=== PATIENT | male | born 1990 | race Caucasian/White ===

== ENCOUNTER 2023-06-20 23:26 | Emergency (ER) | payer OTHER, SELFPAY ==
[2023-06-20 23:35] VITALS: BP 160/110; PULSE 96; RESP 18; TEMP 37.2; O2SAT 99
--- NOTE | 2023-06-20 23:37 | ED_ITS ---
HPI - General Adult General Chief complaint: Psychiatric Symptoms Stated complaint: Substance abuse Time Seen by Provider: 06/20/23 23:37 Source: patient, EMS, old records reviewed (from [facility]) and police Mode of arrival: EMS Limitations: other (patient is intoxicated) History of Present Illness HPI narrative: Patient is a 33 year old assigned male at with a history of alcohol abuse presenting to the emergency department today with aggression. EMS and PD state that the patient was found wandering in the street attempting to open car doors. They state that initially when the patient was approached, he was cooperative but then he became combative and would not answer any of their questions. EMS and PD placed the patient in hard restraints. Related Data Allergies Allergy/AdvReac Type Severity Reaction Status Date / Time No Known Allergies Allergy Unverified 07/25/20 16:07 Review of Systems Constitutional: Constitutional: Reports no additional constitutional complaints, Denies chills, Denies fever(s) and Denies night sweats Eyes: Eyes: Reports no additional eye complaints, Denies blurry vision, Denies change in vision, Denies diplopia, Denies eye discharge, Denies loss of vision and Denies eye pain ENT: Denies dizziness Cardiovascular: Cardiovascular: Reports no additional cardiovascular c omplaints, Denies chest pain, Denies lightheadedness, Denies Loss of Consciousness and Denies dyspnea Respiratory: Respiratory: Reports no additional respiratory complaints and Denies dyspnea Gastrointestinal: Gastrointestinal: Reports no additional gastrointestinal complaints, Denies abdominal pain, Denies melena, Denies hematochezia, Denies change in bowel habits and Denies change in stool character Genitourinary: Genitourinary: Reports no additional male genitourinary complaints, Denies hematuria, Denies oliguria, Denies difficulty urinating, Denies dysuria, Denies urinary frequency, Denies urinary hesitancy, Denies urinary incontinence and Denies urinary urgency Musculoskeletal: Musculoskeletal: Reports no additional musculoskeletal complaints, Denies numbness and Denies tingling Neurologic: Denies dizziness, Denies loss of vision, Denies numbness and Denies tingling Psychiatric: Psychiatric: Reports no additional psychiatric complaints Endocrine: Endocrine: Reports no additional endocrine complaints Hematologic/Lymphatic: Hematologic/Lymphatic: Reports no additional hematologic/lymphatic complaints Allergic/Immunologic: Allergic/Immunologic: Reports no additional allergic/immunologic complaints PMFSH Past Medical History Attestation statement: The following information was validated with the patient. Source: old records reviewed and nursing notes reviewed Social History Social History Advance Directives: No Advance Directives Information Provided: No Physical Exam ED Vital Signs: Vital Signs - 24 hr 06/20/23 23:35 06/20/23 23:43 06/20/23 23:58 Temperature 99.0 F Pulse Rate 96 90 92 Respiratory Rate 18 18 18 Blood Pressure 160/110 H 153/107 H 160/110 H Pulse Oximetry 99 99 98 Oxygen Delivery Method Room Air Room Air Room Air 06/21/23 00:14 06/21/23 00:29 06/21/23 00:44 Temperature Pulse Rate 91 85 92 Respiratory Rate 18 18 18 Blood Pressure 159/106 H 141/93 H 146/100 H Pulse Oximetry 98 98 98 Oxygen Delivery Method Room Air Room Air Room Air 06/21/23 02:00 Temperature Pulse Rate 84 Respiratory Rate 16 Blood Pressure 140/95 H Pulse Oximetry 95 Oxygen Delivery Method Room Air BMI result Body Mass Index 26.6 Const General: cooperative, no acute distress, alert and awake Nutritional Appearance: well nourished Orientation/consciousness: patient oriented x3 Limitations: no limitations HENMT Head: Yes normal to inspection and Yes atraumatic Ears: hearing grossly normal bilaterally and external ears normal General nose exam: Normal external nose present, no nasal discharge noted and no epistaxis Face and sinus: Yes normal facial exam, No abrasion and No laceration Mouth: Normal oral and palatal mucosa present, no drooling and no muffled voice Eyes General: appearance normal, both eyes and all related structures Periorbital: periorbital findings normal Eyelids: Yes eyelids normal Conjunctivae: conjunctivae normal Pupils: Equal, round and reactive pupils present EOM: EOMs intact bilaterally Neck Neck: Yes normal visual inspection, Yes full ROM and Yes no lymphadenopathy Chest Chest palpation & inspection: normal inspection of the chest Resp Effort & Inspection: normal respiratory effort and able to speak in complete sentences Auscultation: clear to auscultation bilaterally Cardio Rate: regular rate Rhythm: regular rhythm GI Inspection: Yes normal to inspection Palpation (GI): Soft to palpation, not firm, nontender and no guarding Neuro General: patient oriented x3 and moves all extremities Cranial nerves: Yes Equal, round and reactive pupils present Cognition (Neuro): normal cognition Motor exam (neuro): 5/5 motor strength present throughout Sensory Exam: Normal double simultaneous stimulation for sensation Coordination: [id number] test normal Extrem General: Yes normal to inspection, Yes full ROM and Yes capillary refill normal Psych Appearance: grossly normal Mental Status: mental status grossly normal Affect: normal affect Attitude: cooperative Thought process: Normal thought process present Thought content: Normal thought content present Insight: Good insight present (Psych) Medical Decision Making Medical Decision Making MDM Narrative: Patient is a 33 year old assigned male at with a history of alcohol abuse presenting to the emergency department today with aggression. Patient would not initially answer my questions and remained in hard restraints from EMS. However, when EMS and PD left the patient's room, he became much more cooperative. Patient's restraints were removed 1 at a time and were eventually all removed. Patient was seen at [facility] on 06/19/2023 requesting alcohol detox. Patient is currently resting and will remain in the department until he is safe to [facility]. Patient will be placed in physician observation. -Patient is awake, alert and oriented times 3. Ambulatory with steady gait. Patient refuses labs, refused SUDE eval -patient before discharge -patient given home Narcan Differential Diagnosis Differential Diagnoses: The differential diagnosis associated with the presentation includes Substance use Agitation Independent Historian Clinical information obtained from an independent historian. History obtained from or confirmed by: EMS (EMS provided additional history and confirmed the history provided by the patient.) External Record Review External record reviewed: Outside ED record ([facility] record from 06/19/2023) Critical Care Time Critical Care Time Critical Care Time: Yes Total Critical Care Time: 45 Attestation: I spent 45 minutes of Critical Care Time with this patient. This does not include time spent on separately reported billable procedures. Discharge Plan Discharge Clinical Impression: Aggression, Polysubstance abuse Patient Disposition: Home, Self-Care Instructions: Polysubstance Abuse (ED) Additional Instructions: Please follow-up with your primary care physician tomorrow. If you have any worsening or new symptoms, please return to the emergency room or call 911 Interventions: [place]-Suicide Risk Severity Scale Last Done: 06/20/23 23:46
[2023-06-20 23:43] VITALS: BP 153/107; PULSE 90; RESP 18; O2SAT 99; BMI 26.6
[2023-06-20 23:58] VITALS: BP 160/110; PULSE 92; RESP 18; O2SAT 98
[2023-06-21 00:14] VITALS: BP 159/106; PULSE 91; RESP 18; O2SAT 98
--- NOTE | 2023-06-21 00:20 | MHC.EDTECH ---
Call out to [facility] Med Rec. at [phone] per PA Saida, left message
--- NOTE | 2023-06-21 00:23 | MHC.EDTECH ---
[facility] Med. Rec called back at [phone] rec. for pt and faxed was over
[2023-06-21 00:29] VITALS: BP 141/93; PULSE 85; RESP 18; O2SAT 98
[2023-06-21 00:44] VITALS: BP 146/100; PULSE 92; RESP 18; O2SAT 98
--- OUTSIDE RECORDS SUMMARY | 2023-06-21 01:41 | XMS_ITS | Continuity of Care Document ---
Author Name Unknown Organization [facility] ter Address [address] [place] [id number]- Care Team Providers Care Welder [employer] Name Role Phone Zhao SARMIENTO, Matt Fairchild Primary Care Physician Encounter [facility] Date(s): 06/19/23 - 06/19/[address] [id number]- Discharge Disposition: A-D/C Home Attending Physician: Alfred Rosas MD Admitting Physician: Alfred Rosas MD Referring Physician: Not on Staff, Referring MD Allergies, Adverse Reactions, Alerts Substance Reaction Severity Status Red Dye Active Medications albuterol 0.083% inhalation solution See Instructions, 0, 0, 09/08/06 16:21:52, Print VIANEY Number, Constant Indicator Start Date: 09/08/06 Status: Ordered Keflex monohydrate 500 mg oral capsule 500, mg, 1, capsule, By Mouth, 4 times a day, 0, 0, 09/08/06 16:22:20, Print VIANEY Number, 65, Constant Indicator Start Date: 09/08/06 Status: Ordered Vicodin 500 mg-5 mg oral tablet See Instructions, 0, 0, 09/08/06 16:22:38, 1 tablet By Mouth, Print VIANEY Number, Constant Indicator Start Date: 09/08/06 Status: Ordered Results Radiology Reports * Exam Date Time Procedure Performing Provider Status 06/19/23 2:51 AM Chest 2 Views Frontal and Lat Beverley Garcia; Rj (Verified) Notes: (Chest 2 Views Frontal and Lat) Reason For Exam: Chest Pain;Other: RESULT: Chest 2 Views Frontal and Lat Chest 2 Views Frontal and Lat Hx of Present Illness: patient endorses drinking 9 tall beers throughout the course of the day the last drink 4 hours ago. One hour ago he developed midsternal chest tightness nonradiating, nonreproduceable. 5 10; Reason: Other:; Chest Pain; Clinical Question(s): CHF COMPARISON: None. FINDINGS: LINES AND TUBES: None. LUNGS AND PLEURA: Clear lungs. Normal pulmonary vascularity. No pleural effusion. No pneumothorax. HEART, MEDIASTINUM AND MINNIE: Heart is normal in size. Normal mediastinal and hilar contour. BONES AND SOFT TISSUES: No acute abnormality. IMPRESSION: No acute abnormality. WSN: [id number] Ordering Physician: Kalina Crenshaw Dictated By: Servando Kearns MD Dictated Date/Time: 06/19/23 6:49 am Reviewed By: Servando Kearns MD Signed By: Servando Kearns MD Signed Date/Time: 06/19/23 6:49 am Transcribed By: EZRA Transcribed Date/Time: 06/19/23 6:49 am Vital Signs Most recent to oldest [Reference Range]: 1 2 3 Height 190 cm (06/19/23 6:35 AM) 190 cm (06/19/23 5:58 AM) 190 cm (06/19/23 1:27 AM) Weight 100 kg (06/19/23 6:35 AM) 100 kg (06/19/23 5:58 AM) 100 kg (06/19/23 1:27 AM) Oxygen Saturation [94-100 %] 98 % (06/19/23 6:35 AM) 98 % (06/19/23 5:58 AM) 96 % (06/19/23 4:14 AM) Pulse Rate [55-90 bpm] 87 bpm (06/19/23 6:56 AM) 75 bpm (06/19/23 6:35 AM) 94 bpm *H* (06/19/23 5:59 AM) Body Mass Index [18.5-24.99 kg/m2] 27.7 kg/m2 *H* (06/19/23 6:35 AM) 27.7 kg/m2 *H* (06/19/23 5:58 AM) Blood Pressure [90-138/55-84 mm Hg] 152/94mm Hg *H* (06/19/23 6:56 AM) 156/98mm Hg *H* (06/19/23 6:35 AM) 197/126mm Hg *H* (06/19/23 5:59 AM) Respiratory Rate [16-30 br/min] 22 br/min (06/19/23 6:56 AM) 22 br/min (06/19/23 6:35 AM) 19 br/min (06/19/23 5:59 AM) Temperature [96.8-100.4 DegF] 97.9 DegF (06/19/23 4:14 AM) 97.9 DegF (06/19/23 1:27 AM) Mode of Delivery (Oxygen) Room air (06/19/23 6:35 AM) Room air (06/19/23 5:58 AM) Room air (06/19/23 4:14 AM) Blood pressure sites Arm, left (06/19/23 6:35 AM) Arm, left (06/19/23 5:58 AM) Leg, right (06/19/23 4:14 AM) Temperature Route Oral (06/19/23 4:14 AM) Oral (06/19/23 1:27 AM) Dry Weight 100 kg (06/19/23 6:35 AM) 100 kg (06/19/23 5:58 AM) 100 kg (06/19/23 1:27 AM) Note * Flower STUBBS, Kalina Brown: PERFORM Event Display: Patient Education Leaflets Authored Date: [id number] Uncertain Causes of Chest Pain ?? [id number] Uncertain Causes of Chest Pain Chest pain can happen for a number of reasons. Sometimes the cause can't be determined. If your??condition does not seem serious, and your pain does not appear to be coming from your heart, your healthcare provider may recommend watching it closely. Sometimes the signs of a serious problem take more time to appear. Many problems not related to your heart can cause chest pain. These include: ??? Musculoskeletal. Costochondritis is an inflammation of the tissues around the ribs that can occur from trauma or overuse injuries, or a strain of the muscles of the chest wall. ??? Respiratory. Pneumonia, collapsed lung (pneumothorax), or inflammation of the lining of the chest and lungs (pleurisy). ??? Gastrointestinal. Esophageal reflux, heartburn, ulcers, or gallbladder disease. ??? Anxiety and panic disorders ??? Nerve compression and inflammation ??? Rare problems such as aortic aneurysm or aortic dissection (a swelling of the large artery coming out of the heart or a tear in the wall of the artery), or pulmonary embolism (a blood clot in the lungs). Home care After your visit, follow these recommendations: ??? Rest today and avoid strenuous activity. ??? Take any prescribed medicine as directed. ??? Be aware of any recurrent chest pain and notice any changes ?? Follow-up care Follow up with your healthcare provider if you don't start to feel better within 24 hours, or as advised. ?? Call 911 Call 911 if any of these occur: ??? A change in the type of pain: if it feels different, becomes more severe, lasts longer, or begins to spread into your shoulder, arm, neck, jaw or back ??? Shortness of breath or increased pain with breathing ??? Weakness, dizziness, or fainting ??? Rapid heartbeat ??? Crushing sensation in your chest ??? Coughing up more than a small amount of blood. ?? When to seek medical advice Call your healthcare provider right away if any of the following occur: ??? Cough with dark coloredsputum (phlegm) or small amount of blood ??? Fever of 100.4??F??(38??C) or higher, or as directed by your healthcare provider ??? Swelling, pain or redness in one leg ?? Last Reviewed Date: 2021 ?? [id number] The [employer]. All rights reserved. This information is not intended as a substitute for professional medical care. Always follow your healthcare professional's instructions. ?? * Alfred Rosas MD: PERFORM Event Display: Patient Education Leaflets Authored Date: [id number] [facility] - Substance Abuse Resources ?? 151 If you need Substance Abuse Resources: ?? [facility] [phone] ?? [facility] [phone] ?? [facility] [phone] ?? [facility] [phone] ?? [facility] [phone] ?? [facility] [place] [phone] ?? [facility] [phone] ?? [facility] [phone] ?? [facility] [place] [phone] ?? [facility] [phone] ?? [facility] [phone] ?? [facility] [phone] ?? [facility] [phone] ?? [facility] [phone] ?? [facility] [place] [phone] ?? [facility] (13-17 yo) [place] [phone] ?? [facility] [place] [phone] ? Partial Hospitalization ??? Outpatient therapy for adults and families with substance abuse problems [address] [place] [address] ? Support Services ? [facility] - Outpatient therapy /support for recovery / transitional housing & shelters? [facility] [phone] ? [facility] - women's AA group/street outreach program/health access assistance? [address] [place] [address] ? Alcoholic Anonymous - AA program to maintain sobriety/ [facility]-support for families of alcoholics/Alateen-support for children of same [phone] ? [facility] - recovery support services/sober social Opportunities [address] [place] [address] ? Patient Care team information Care Team Personnel Name: Zhao SARMIENTO, Matt Fairchild Position: [facility] Outreach Member Role: PCP Address: Address: [address] [place] [id number]- Name: Ashly Jenkins RN Position: [facility] ED RN W/OE and Tasks Member Role: Patient Care Provider Name: Cornelia Barrientos Position: [facility] ED TA [facility] Name: Flower STUBBS, Kalina Brown Position: [facility] Associate Professional Member Role: ED Physician Manpower Development Manager Address: Address: [address] [place] [address] Name: Alfred Rosas MD Position: [facility] Resident Member Role: Admitting Physician Address: Address: [address] [place] [address]
[2023-06-21 02:00] VITALS: BP 140/95; PULSE 84; RESP 16; O2SAT 95
--- NOTE | 2023-06-21 05:52 | MHC.EDTECH ---
PATIENT HAS REFUSED LABS AND EKG. MULTIPLE ATTEMPTS WERE MADE TO SEE IF PATIENT WAS WILLING TO ALLOW TESTING.
[2023-06-21] MEDS: Naloxone HCl Nasal TAKE HOME 4 MG SPRAY 8 MG NOSTRILALT (06:05)
--- NOTE | 2023-06-21 06:11 | PC.NURSE ---
Pt a&o, no sob or chest pain, Reviewed discharge instructions with pt, pt verbalized understanding, no sign of distress.
== END 2023-06-21 06:16 | disposition home or self-care (01) ==
PROVIDERS: Emergency Provider Emergency Medicine
DX: F91.8 Other conduct disorders (principal); F19.10 Other psychoactive substance abuse, uncomplicated; F10.10 Alcohol abuse, uncomplicated; Y90.9 Presence of alcohol in blood, level not specified
CPT/HCPCS: 99284; 99285

== ENCOUNTER 2023-06-21 16:55 | Emergency (ER) | payer OTHER, SELFPAY ==
[2023-06-21 17:06] VITALS: BP 158/111; PULSE 110; RESP 18; TEMP 36.7; O2SAT 98; BMI 28.7
--- NOTE | 2023-06-21 17:31 | ECG_ITS ---
Test Reason : ETOH Blood Pressure : / mmHG Vent. Rate : 095 BPM Atrial Rate : 095 BPM P-R Int : 172 ms QRS Dur : 102 ms QT Int : 352 ms P-R-T Axes : 049 048 029 degrees QTc Int : 442 ms Normal sinus rhythm Possible Left atrial enlargement Borderline ECG When compared with ECG of 29-APR-2011 10:24, Heart rate has decreased Referred By: Generic ED Physician Electronically Signed By:CHAO CALLE
--- NOTE | 2023-06-21 17:59 | ED_ITS ---
HPI - Psych General Chief Complaint: ETOH/Substance Use Stated Complaint: crisis d/c this am Time Seen by Provider: 06/21/23 17:37 Source: patient Limitations: no limitations History of Present Illness HPI Narrative: 33-year-old male with history of depression, anxiety, alcohol abuse presents with depressive symptomatology. Patient was seen on June 20. He was seen for aggressive behavior. Initially he would not answer any questions. He was placed in hard restraints by EMS. However when EMS and police department left the patient's room, he became more cooperative. Patient also reports having been seen at [facility] on June 19 for request for detox.. At the time he was seen here yesterday, he refused to a evaluation by our care team. He now presents with his mother reporting passive suicidal ideation, no plan. He reports his last drink or was a couple beers today. Prior to that he had been alcohol free for 3 or 4 days. Patient also reportedly had chest pain at [facility]. Denies any active chest pain at this time. Patient denies any alcohol withdrawal symptoms. Patient denies previous history of psychiatric admission or hospitalization. There is no previous history of detox. Mother re ports that he has a fairly bright young lisa currently enrolled in school. Related Data Allergies Allergy/AdvReac Type Severity Reaction Status Date / Time No Known Allergies Allergy Unverified 07/25/20 16:07 Review of Systems Review of Systems: CONSTITUTIONAL: Denies weight loss, fever and chills. HEENT: Denies changes in vision and hearing. RESPIRATORY: Denies SOB and cough. CV: Denies palpitations no CP. GI: Denies abdominal pain, nausea, vomiting and diarrhea. : Denies dysuria and urinary frequency. MSK: Denies myalgia and joint pain. SKIN: Denies rash and pruritus. NEUROLOGICAL: Denies headache and syncope. PSYCHIATRIC: + recent changes in mood. + anxiety and depression. All other ROS are negative unless in HPI PMFSH Social History Social History Advance Directives: No Advance Directives Information Provided: Yes Physical Exam Vital Signs: Vital Signs: Last Vital Signs Temp 98.1 F 06/21/23 19:13 Pulse 93 06/21/23 19:13 Resp 17 06/21/23 19:13 BP 131/75 06/21/23 19:13 Pulse Ox 99 06/21/23 19:13 O2 Del Method Room Air 06/21/23 19:13 BMI result Body Mass Index 28.7 GEN: Well developed, no acute distress, alert, oriented HEENT: Normocephalic, atraumatic, normal external ears, nose appears normal, no oropharyngeal edema or exudates Eyes: Normal to appearance Neck: Supple, no lymphadenopathy Respiratory: Talks in complete sentences, no respiratory distress, clear to auscultation bilaterally Cardiovascular: Regular rate and rhythm, no murmurs rubs or gallops Abdomen: Soft, nontender, nondistended, no guarding, no rebound Back: No CVA tenderness Extremities: No clubbing cyanosis or edema Neurologic: No focal neurologic deficits, cranial nerves 2-12 intact, strength is 5/5 bilaterally Skin: No rash Course Course Course Narrative: Patient wore off be placed in physician observation at 7:57 p.m.. Patient was positive for barbiturates and his alcohol level wish just above 200. I discussed the evaluation process with the patient mother. Will remain here overnight pending care team evaluation. Medications Administered Discontinued Medications Generic Name Dose Route Start Last Admin Trade Name Freq PRN Reason Stop Dose Admin Metoprolol Tartrate 25 mg 06/21/23 18:06 06/21/23 18:20 Metoprolol Tartrate 25 Mg Tablet PO 06/21/23 18:07 25 mg ONCE ONE Administration Protocol Potassium Chloride 40 meq 06/21/23 19:03 06/21/23 19:12 Potassium Chloride Packet 20 Meq Packet PO 06/21/23 19:04 40 meq ONCE ONE Administration Medical Decision Making Medical Decision Making [facility] Narrative: Patient presents with complaints of depression, anxiety, alcohol abuse patient denies drug abuse in family denies a history of drug abuse. Patient has some passive suicidal ideation, no plan. He is requesting assistance with both alcohol and depression. Patient will be placed on consultation for care team. Will perform routine medical clearance. He is, cooperative at this time. Patient also appears to have hypertensive urgency. Is in the 150s over 1 teens. Patient will get metoprolol. Does not appear to be tremulous or an act of alcohol withdrawal at this time. Will keep a close eye and have a low threshold to provide patient with benzodiazepines for potential withdrawal symptoms. Differential Diagnosis Differential Diagnoses: The differential diagnosis associated with the presentation includes (Depression, anxiety, substance abuse, substance induced mood disorder, PTSD, personality disorder, schizophrenia) Admission/Observation Consideration of admission/observation: Escalation of care including admission/observation considered Lab Data MDM Lab Attestation statement: I reviewed the patient's lab results. 06/21/23 18:18 06/21/23 18:18 Labs: Lab Results 06/21/23 06/21/23 06/21/23 Range/Units 18:18 18:18 18:18 WBC 6.5 (4.8-10.8) X10*3/uL RBC 4.53 L (4.60-5.80) X10*6/uL Hgb 14.3 (14.0-18.0) g/dl Hct 39.8 L (42.0-52.0) % MCV 87.9 (80.0-98.0) fL MCH 31.6 (27.0-33.0) pg MCHC 35.9 (31.0-36.0) g/dl RDW 11.3 (11.0-16.0) % Plt Count 88 L (160-400) X10*3/uL MPV 10.6 (9.4-12.4) fL Immature Gran % (Auto) 0.3 (0.0-0.4) % Neut % (Auto) 64.2 (45-73) % Lymph % (Auto) 18.1 L (20-40) % [place] % (Auto) 15.7 H (2-11) % Eos % (Auto) 1.1 (0-4) % Baso % (Auto) 0.6 (0-2) % Lymph # (Auto) 1.2 (1.2-4.9) X10*3/uL [place] # (Auto) 1.0 (0.1-1.2) X10*3/uL Eos # (Auto) 0.1 (0.0-0.4) X10*3/uL Baso # (Auto) 0.0 (0.0-0.2) X10*3/uL Abs Immat Gran (auto) 0.02 (0.00-0.03) X10*3/uL Absolute Neuts (auto) 4.1 (2.0-8.3) x10*3/uL Absolute Nucleated RBC 0.000 (0.0-0.012) X10*3/uL Nucleated RBC % (auto) 0.0 (0.0-0.2) /100WBC Smear Tech's Comments VERIFIED Sodium 134 L (135-145) mmol/L Potassium 3.2 L (3.3-5.1) mmol/L Chloride 95 L (96-108) mmol/L Carbon Dioxide 25 (22-29) mmol/L Anion Gap 17 (12-20) BUN 13 (9-16) mg/dL Creatinine 0.83 (0.5-1.4) mg/dL Estim Creat Clear Calc 163.9 Estimated GFR > 60 Random Glucose 114 (60-115) mg/dL Calcium 9.0 (8.4-10.2) mg/dL Total Bilirubin 1.3 H (0.0-1.0) mg/dL AST 103 H (5-37) U/L ALT 83 H (0-40) U/L Alkaline Phosphatase 78 (39-117) U/L Total Protein 7.5 (6.5-8.0) g/dL Albumin 4.2 (3.5-5.0) g/dL Urine Color Yellow Urine Appearance Clear Urine pH 5.5 (5.0-9.0) Ur Specific [place] 1.015 (1.005-1.025) Urine Protein 300 (3+) H (Neg-Trace) mg/dL Urine Glucose (UA) Negative (Negative) mg/dL Urine Ketones Negative (Negative) mg/dL Urine Blood Negative (Negative) Urine Nitrite Negative (Negative) Ur Leukocyte Esterase Negative (Negative) Urine RBC 0-2 (0-2) /HPF Urine WBC 0-5 (0-5) /HPF Ur Squamous Epith Cells 0-2 (0-2) /HPF Urine Bacteria None Seen (None Seen) Hyaline Casts 0-2 (0-2) /LPF Urine Opiates Screen (Not Detect) Urine Fentanyl Screen (Not Detect) Ur Barbiturates Screen (Not Detect) Ur Phencyclidine Scrn (Not Detect) Ur Amphetamines Screen (Not Detect) U Benzodiazepines Scrn (Not Detect) Urine Cocaine Screen (Not Detect) U Marijuana (THC) Screen (Not Detect) Ethyl Alcohol 208 mg/dL 06/21/23 Range/Units 18:18 WBC (4.8-10.8) X10*3/uL RBC (4.60-5.80) X10*6/uL Hgb (14.0-18.0) g/dl Hct (42.0-52.0) % MCV (80.0-98.0) fL MCH (27.0-33.0) pg MCHC (31.0-36.0) g/dl RDW (11.0-16.0) % Plt Count (160-400) X10*3/uL MPV (9.4-12.4) fL Immature Gran % (Auto) (0.0-0.4) % Neut % (Auto) (45-73) % Lymph % (Auto) (20-40) % [place] % (Auto) (2-11) % Eos % (Auto) (0-4) % Baso % (Auto) (0-2) % Lymph # (Auto) (1.2-4.9) X10*3/uL [place] # (Auto) (0.1-1.2) X10*3/uL Eos # (Auto) (0.0-0.4) X10*3/uL Baso # (Auto) (0.0-0.2) X10*3/uL Abs Immat Gran (auto) (0.00-0.03) X10*3/uL Absolute Neuts (auto) (2.0-8.3) x10*3/uL Absolute Nucleated RBC (0.0-0.012) X10*3/uL Nucleated RBC % (auto) (0.0-0.2) /100WBC Smear Tech's Comments Sodium (135-145) mmol/L Potassium (3.3-5.1) mmol/L Chloride (96-108) mmol/L Carbon Dioxide (22-29) mmol/L Anion Gap (12-20) BUN (9-16) mg/dL Creatinine (0.5-1.4) mg/dL Estim Creat Clear Calc Estimated GFR Random Glucose (60-115) mg/dL Calcium (8.4-10.2) mg/dL Total Bilirubin (0.0-1.0) mg/dL AST (5-37) U/L ALT (0-40) U/L Alkaline Phosphatase (39-117) U/L Total Protein (6.5-8.0) g/dL Albumin (3.5-5.0) g/dL Urine Color Urine Appearance Urine pH (5.0-9.0) Ur Specific [place] (1.005-1.025) Urine Protein (Neg-Trace) mg/dL Urine Glucose (UA) (Negative) mg/dL Urine Ketones (Negative) mg/dL Urine Blood (Negative) Urine Nitrite (Negative) Ur Leukocyte Esterase (Negative) Urine RBC (0-2) /HPF Urine WBC (0-5) /HPF Ur Squamous Epith Cells (0-2) /HPF Urine Bacteria (None Seen) Hyaline Casts (0-2) /LPF Urine Opiates Screen Not Detected (Not Detect) Urine Fentanyl Screen Not Detected (Not Detect) Ur Barbiturates Screen POSITIVE H (Not Detect) Ur Phencyclidine Scrn Not Detected (Not Detect) Ur Amphetamines Screen Not Detected (Not Detect) U Benzodiazepines Scrn Not Detected (Not Detect) Urine Cocaine Screen Not Detected (Not Detect) U Marijuana (THC) Screen Not Detected (Not Detect) Ethyl Alcohol mg/dL Independent Interpretation I performed an independent interpretation of an: EKG (Normal sinus rhythm heart rate 95, normal intervals, no acute ST elevations or depressions, low voltage seen in lead 3 and AVF) Independent Historian Clinical information obtained from an independent historian. History obtained fr om or confirmed by: Parent Prescription Management I considered prescription management with: Other (Anxiety medications) Discharge Plan Discharge Clinical Impression: Alcohol abuse, Depression, Alcoholic intoxication Patient Disposition: Still a Patient
--- NOTE | 2023-06-21 18:10 | MHC.EDTECH ---
this pct took a ekg on this patient and documented the wrong time the correct time is 6445
[2023-06-21] MEDS: Metoprolol Tartrate 25 MG TABLET PO (18:20)
[2023-06-21 18:25] LABS: Appearance Urine Clear; Basophils Percent Auto 0.6 % (0-2); Color Urine Yellow; Glucose Urine UA Negative (Negative); Hemoglobin 14.3 g/dl (14.0-18.0); Imm Gran Abs Auto 0.02 X10*3/uL (0.00-0.03); Imm Gran Pct Auto 0.3 % (0.0-0.4); Leukocyte Esterase Urine Negative (Negative); MANUAL DIFF FLAG SCAN; Nitrite Urine Negative (Negative); PH 5.5 (5.0-9.0); PLT CLUMP 1; Red Cell Distribution Width 11.3 % (11.0-16.0); SCAN SMEAR FLAG 1; Specific Gravity - Urine 1.015 (1.005-1.025); UMIC TRIGGER UACC YES; Urine Blood Negative (Negative); Urine Ketones Negative (Negative); Urine Protein 300 (3+) mg/dL (Neg-Trace)
[2023-06-21 18:26] LABS: Eosinophils Absolute Auto 0.1 X10*3/uL (0.0-0.4); Eosinophils Percent Auto 1.1 % (0-4); Hematocrit 39.8 % (42.0-52.0); Lymphocytes Absolute Auto 1.2 X10*3/uL (1.2-4.9); Lymphocytes Percent Auto 18.1 % (20-40); Mean Corpuscular HGB Conc 35.9 g/dl (31.0-36.0); Mean Corpuscular Hemoglobin 31.6 pg (27.0-33.0); Mean Corpuscular Volume 87.9 fL (80.0-98.0); Mean Platelet Volume 10.6 fL (9.4-12.4); Monocytes Percent Auto 15.7 % (2-11); Neutrophils Absolute Auto 4.1 x10*3/uL (2.0-8.3); Neutrophils Percent Auto 64.2 % (45-73); Red Blood Count 4.53 X10*6/uL (4.60-5.80)
[2023-06-21 18:28] LABS: Bacteria Urine None Seen (None Seen); Hyaline Casts Urine 0-2 /LPF (0-2); RBC Urine 0-2 /HPF (0-2); Squamous Epithelial Cell Urine 0-2 /HPF (0-2); WBC Urine 0-5 /HPF (0-5)
[2023-06-21 18:36] LABS: Amphetamine Screen Urine Not Detected (Not Detect); Barbiturates, Urine POSITIVE (Not Detect); Benzodiazepines Screen Urine Not Detected (Not Detect); Cannabinoid Screen Urine Not Detected (Not Detect); Cocaine Screen Urine Not Detected (Not Detect); Fentanyl, urine Not Detected (Not Detect); Opiate Screen Urine Not Detected (Not Detect); Phencyclidine Screen Urine Not Detected (Not Detect)
--- NOTE | 2023-06-21 18:39 | MHC.RECOVSUP ---
? Reason for consult Recovery Support o Current location: ED20H o Identified substance use concern: Alcohol - Seeking ATS (detox) - Support ? Intervention: o ATS bed search in process o Community resources provided o Harm reduction discussion ? Plan: o Patient to follow up with [facility] after discharge ? Additional information: Met with Patient and we talk recovery and patient stated that he want to go to detox... Thats why he here.. I called all over no beds at the moment.. but resources was given...
[2023-06-21 18:48] LABS: Alanine Aminotransferase 83 U/L (0-40); Albumin Level 4.2 g/dL (3.5-5.0); Alkaline Phosphatase 78 U/L (39-117); Anion Gap 17 (12-20); Aspartate Amino Transferase 103 U/L (5-37); Bilirubin Total 1.3 mg/dL (0.0-1.0); Blood Urea Nitrogen 13 mg/dL (9-16); Carbon Dioxide 25 mmol/L (22-29); Chloride 95 mmol/L (96-108); Creatinine Clr Calc Pharmacy 163.9; Estimated Glomerular Filt Rate > 60; Glucose Random 114 mg/dL (60-115); Potassium 3.2 mmol/L (3.3-5.1); Sodium 134 mmol/L (135-145); Total Protein 7.5 g/dL (6.5-8.0)
[2023-06-21 18:54] LABS: White Blood Count 6.5 X10*3/uL (4.8-10.8)
[2023-06-21 18:55] LABS: Platelet Count 88 X10*3/uL (160-400); SLIDE REVIEW VERIFIED
[2023-06-21] MEDS: Potassium Chloride Packet 20 MEQ PACKET 40 MEQ PO (19:12)
[2023-06-21 19:13] VITALS: BP 131/75; PULSE 93; RESP 17; TEMP 36.7; O2SAT 99
[2023-06-21 19:35] LABS: Ethanol 208 mg/dL
[2023-06-21] MEDS: Acetaminophen 325 MG TABLET 975 MG PO (20:31)
[2023-06-21 21:15] VITALS: BP 118/72; PULSE 82; RESP 16; TEMP 36.8; O2SAT 95
[2023-06-22 01:21] VITALS: BP 117/66; PULSE 72; RESP 16; TEMP 36.9; O2SAT 96
[2023-06-22] MEDS: LORazepam 1 MG TABLET 2 MG PO (04:01)
[2023-06-22 05:51] VITALS: RESP 17
[2023-06-22 07:38] VITALS: RESP 18
--- NOTE | 2023-06-22 08:42 | PC.NURSE ---
PT IS ASLEEP, RESP EVEN AND UNLABORED. PT TO BE SEEN BY THE CARE TEAM. PT AWARE OF PLAN OF CARE. PT'S MOTHER IS AT BEDSIDE.
--- NOTE | 2023-06-22 09:30 | PC.NURSE ---
pt seen by care team (rylee), pt aware of plan of care.
[2023-06-22 09:50] VITALS: BP 146/78; PULSE 60; O2SAT 100
[2023-06-22 10:00] VITALS: BP 134/91; PULSE 74; RESP 18; TEMP 36.8; O2SAT 96
--- NOTE | 2023-06-22 13:44 | MHC.RECOVRN ---
This ticket writer met with patient, patient presented to ED with thoughts of self harm and ETOH use. Pt was resting comfortably in bed, mother at bedside. Pt reports recent one day recurrence ETOH use, 6 beers. Pt states 2 months recovery time. Pt reports prior to 2 months ago had been drinking daily. Pt reports no hx of HANS, pt reports had been to detox tx in the past. Pt declined HANS at this time, agreeable to review resources provided to pt and Mom. This ticket writer and patient reviewed harm reduction, community recovery supports, medications for ETOH use. Pt verbalized understanding. Pt encouraged to call Addiction/Recovery team with questions/concerns.
== END 2023-06-22 12:09 | disposition home or self-care (01) ==
PROVIDERS: Emergency Provider Emergency Medicine
DX: F10.220 Alcohol dependence with intoxication, uncomplicated (principal); Y90.7 Blood alcohol level of 200-239 mg/100 ml; R45.851 Suicidal ideations; F32.A Depression, unspecified; F19.10 Other psychoactive substance abuse, uncomplicated; F41.9 Anxiety disorder, unspecified
CPT/HCPCS: 36415; 80053; 80307; 81001; 85025; 93005; 99284; S9485